=== PATIENT | male | born 2000 | race Caucasian/White ===

== ENCOUNTER → 2019-04-29 | Outpatient (CLI) | payer OTHER ==
--- NOTE | 2019-04-29 17:41 | Diagnostic Imaging Report ---
INDICATION: Playing with puppy, tripped, landed on hand, pain and swelling. TECHNIQUE: Two views of the right hand. CORRELATION STUDY: None. FINDINGS: Slightly comminuted fracture involving the head and neck at the distal fifth metacarpal. Slight impaction present. Alignment also with very slight volar angulation. Remaining osseous structures are otherwise intact. Some soft tissue edema noted along the area of the fracture. IMPRESSION: 1. Slightly comminuted fracture at the distal fifth metacarpal. Fracture involves the head and neck. Associated soft tissue swelling. Findings have been telephoned to [place] at the time of this dictation, 5:29 p.m. Dictated by: Dictated on workstation # [id number]
== END ==
LOC: RAD 17:14
PROVIDERS: ATTEND Nurse Practitioner Family
DX: M79.641 Pain in right hand (principal); W01.0XXA Fall on same level from slipping, tripping and stumbling without subsequent striking against object, initial encounter; Y93.89 Activity, other specified
CPT/HCPCS: 73120

== ENCOUNTER → 2019-05-05 | Outpatient (CLI) | payer OTHER ==
--- NOTE | 2019-05-05 09:29 | Diagnostic Imaging Report ---
INDICATION: Followup fracture. Time of exam 9:05 a.m. COMPARISON: Correlation is made with prior radiographs from 04/29/2019. FINDINGS: Fracture involving the distal fifth metacarpal is again noted. Overall alignment appears stable with some mild volar angulation of the distal fracture fragment. No significant displacement is seen. Fracture lines remain clearly visible. No significant callus formation is seen at this time. Remainder of the metacarpals and phalanges are intact. Carpus unremarkable. IMPRESSION: Distal fifth metacarpal fracture, similar in appearance to the examination from 6 days earlier. Dictated by: Dictated on workstation # [id number]
== END ==
LOC: ORTHO 08:27
PROVIDERS: ATTEND Orthopaedic Surgery
DX: S62.336A Displaced fracture of neck of fifth metacarpal bone, right hand, initial encounter for closed fracture (principal); W01.0XXA Fall on same level from slipping, tripping and stumbling without subsequent striking against object, initial encounter
CPT/HCPCS: 29075; 73130

== ENCOUNTER → 2019-05-26 | Outpatient (CLI) | payer OTHER ==
--- NOTE | 2019-05-26 09:31 | Diagnostic Imaging Report ---
INDICATION: Followup fifth metacarpal fracture. Time of exam: 9:07 AM Correlation is made with prior study from 05/05/2019. Comminuted fracture of the distal fifth metacarpal is again seen. There is some callus formation consistent with some healing. Mild volar angulation of the distal fracture fragment is noted. There is no displacement. Fracture lines remain visible. Phalanges are unremarkable. IMPRESSION: Healing distal fifth metacarpal fracture. Fracture lines do remain partly visible, however. Dictated by: Dictated on workstation # [id number]
== END ==
LOC: ORTHO 08:49
PROVIDERS: ATTEND Orthopaedic Surgery
DX: S62.336D Displaced fracture of neck of fifth metacarpal bone, right hand, subsequent encounter for fracture with routine healing (principal)
CPT/HCPCS: 73130; 99213

== ENCOUNTER → 2019-06-09 | Outpatient (CLI) | payer OTHER ==
--- NOTE | 2019-06-09 09:16 | Diagnostic Imaging Report ---
EXAMINATION: Right hand at 8:48 AM INDICATION: Followup fracture 3 views were obtained. The prior exam of 05/26/19 noted a healing fracture of the head of the fifth metacarpal. On this study, the fracture is again evident and does not seem to have changed significantly. There is still mild dorsal angulation of the fracture fragments at the fracture site. There is callus formation present but the fracture lines are still visible. The overall appearance of the hand is otherwise unchanged. No new abnormality has developed. IMPRESSION: There is a healing fracture of the neck of the fifth metacarpal. When compared to prior study, however, there has been no significant change. The fracture lines are still evident. Dictated by: Dictated on workstation # [id number]
== END ==
LOC: ORTHO 08:39
PROVIDERS: ATTEND Orthopaedic Surgery
DX: S62.336A Displaced fracture of neck of fifth metacarpal bone, right hand, initial encounter for closed fracture (principal); W01.0XXA Fall on same level from slipping, tripping and stumbling without subsequent striking against object, initial encounter
CPT/HCPCS: 73130; 99213

== ENCOUNTER 2019-11-27 09:14 | Emergency (ER) | payer OTHER ==
[~2019-11-27] VITALS: Ht 170 cm; Wt 66.6 kg
[2019-11-27] MEDS ORDERED: LACTATED RINGERS 1,000 ML IV ONE ×2 (09:55→09:56)
--- NOTE | 2019-11-27 09:55 | ED Psychosocial ---
General Chief Complaint: Psych/Social Disorder Stated Complaint: PSYCH EVAL Source: patient, family (mom) Exam Limitations: clinical condition History of Present Illness Date Seen by Provider: Nov 27, 2019 Time Seen by Provider: 09:40 Initial Comments Patient presents to ER by private conveyance with his mother and chief complaint past couple weeks he's been having some paranoid delusions hearing voices that have told him to hurt himself and others according to his mom but he denies that they have told him that. He does hear voices and they talk about a variety of things. He denies suicidal ideation or homicidal ideation at this time. He's been concerned that his dog might be that he might have diabetes and a variety of other unrelated maladies that he cannot support why he has these fears. Sunday, 4 days ago he was picked up with marijuana, Adderall and crystal methamphetamines and was released back into his mother's custody yesterday evening. He does not have any routine prescription medications. She brought him here because she feels he is a danger to himself and possibly others and would not be safe on his own. He has not done anything other than drugs to intentionally harm himself that he endorses. He is not having any pain or nausea. He denies shortness of breath fevers chills cough, diarrhea or constipation. He denies using other prescription drugs, opiates, cocaine. He denies any prior psychiatric history. He says been using methamphetamine since high school. No known previous medical history . He has a history of his tonsils and adenoids surgically removed. Allergies and Home Medications Allergies Coded Allergies: No Known Drug Allergies (Unverified , 11/27/19) Patient Home Medication List Home Medication List Reviewed: Yes Review of Systems Constitutional: No chills, No fever; malaise; No weakness EENTM: No ear discharge, No ear pain Respiratory: No cough, No short of breath Cardiovascular: No chest pain, No edema Gastrointestinal: No abdominal pain, No constipation, No dysphagia, No nausea Genitourinary: No discharge, No dysuria Musculoskeletal: No back pain, No joint pain Skin: No pruritus, No rash Psychiatric/Neurological: See HPI All Other Systems Reviewed Negative Unless Noted: Yes Past Hmbsgns-Usiiba-Vevyxz Hx Patient Social History Alcohol Use: Denies Use Recreational Drug Use: Yes Drug of Choice: Meth, cannabis, Adderall Smoking Status: Never a Smoker Physical Exam Vital Signs - First Documented 11/27/19 09:44 Temp 37.0 Pulse 69 Resp 14 B/P (MAP) 134/82 (99) Pulse Ox 100 Capillary Refill : Height, Weight, BMI Height: '" Weight: lbs. oz. kg; BMI Method: General Appearance: WD/WN, mild distress, other (he is clutching a crucifix and rosary) HEENT: PERRL/EOMI, normal ENT inspection, TMs normal; No pharynx normal (oral mucosa is dry) Neck: non-tender, full range of motion, normal inspection Respiratory: lungs clear, normal breath sounds, no respiratory distress, no accessory muscle use Cardiovascular: normal peripheral pulses, regular rate, rhythm, no edema Peripheral Pulses: 2+ Radial Pulses (R), 2+ Radial Pulses (L) Gastrointestinal: normal bowel sounds, non tender, soft, no organomegaly Neurologic/Psychiatric: alert, oriented x 3 Appearance/Memory: no memory impairment, disheveled, impaired insight Behavior/Eye Contact: cooperative, avoids eye contact, increased rate of speech, other (tangential) Thoughts/Hallucinations: auditory hallucinations, delusions, paranoid, persecution Skin: normal color, warm/dry Progress/Results/Core Measures Results/Orders Lab Results Laboratory Tests Test 11/27/19 10:08 11/27/19 10:55 Range/Units White Blood Count 7.5 4.3-11.0 10^3/uL Red Blood Count 5.02 4.35-5.85 10^6/uL Hemoglobin 15.3 13.3-17.7 G/DL Hematocrit 44 40-54 % Mean Corpuscular Volume 87 80-99 FL Mean Corpuscular Hemoglobin 30 25-34 PG Mean Corpuscular Hemoglobin Concent 35 32-36 G/DL Red Cell Distribution Width 11.5 10.0-14.5 % Platelet Count 254 130-400 10^3/uL Mean Platelet Volume 10.4 7.4-10.4 FL Neutrophils (%) (Auto) 63 42-75 % Lymphocytes (%) (Auto) 30 12-44 % Monocytes (%) (Auto) 7 0-12 % Eosinophils (%) (Auto) 0 0-10 % Basophils (%) (Auto) 0 0-10 % Neutrophils # (Auto) 4.7 1.8-7.8 X 10^3 Lymphocytes # (Auto) 2.3 1.0-4.0 X 10^3 Monocytes # (Auto) 0.5 0.0-1.0 X 10^3 Eosinophils # (Auto) 0.0 0.0-0.3 10^3/uL Basophils # (Auto) 0.0 0.0-0.1 10^3/uL Sodium Level 141 135-145 MMOL/L Potassium Level 3.6 3.6-5.0 MMOL/L Chloride Level 106 98-107 MMOL/L Carbon Dioxide Level 22 21-32 MMOL/L Anion Gap 13 5-14 MMOL/L Blood Urea Nitrogen 11 7-18 MG/DL Creatinine 0.84 0.60-1.30 MG/DL Estimat Glomerular Filtration Rate > 60 BUN/Creatinine Ratio 13 Glucose Level 107 H 70-105 MG/DL Calcium Level 9.5 8.5-10.1 MG/DL Corrected Calcium 9.1 8.5-10.1 MG/DL Total Bilirubin 0.6 0.1-1.0 MG/DL Aspartate Amino Transf (AST/SGOT) 15 5-34 U/L Alanine Aminotransferase (ALT/SGPT) 12 0-55 U/L Alkaline Phosphatase 68 40-136 U/L Total Creatine Kinase 44 30-200 U/L Total Protein 7.2 6.4-8.2 GM/DL Albumin 4.5 3.2-4.5 GM/DL Salicylates Level < 0.3 L 5.0-20.0 MG/DL Acetaminophen Level < 10 L 10-30 UG/ML Serum Alcohol < 10 <10 MG/DL Urine Color YELLOW Urine Clarity CLOUDY H Urine pH 7.0 5-9 Urine Specific [place] 1.020 1.016-1.022 Urine Protein NEGATIVE NEGATIVE Urine Glucose (UA) NEGATIVE NEGATIVE Urine Ketones NEGATIVE NEGATIVE Urine Nitrite NEGATIVE NEGATIVE Urine Bilirubin NEGATIVE NEGATIVE Urine Urobilinogen 0.2 < = 1.0 MG/DL Urine Leukocyte Esterase NEGATIVE NEGATIVE Urine RBC (Auto) NEGATIVE NEGATIVE Urine RBC NONE /HPF Urine WBC 0-2 /HPF Urine Squamous Epithelial Cells 0-2 /HPF Urine Crystals PRESENT H /LPF Urine Amorphous Sediment LARGE KELLEY URATES H /LPF Urine Bacteria NEGATIVE /HPF Urine Casts NONE /LPF Urine Mucus SMALL H /LPF Urine Culture Indicated NO Urine Opiates Screen NEGATIVE NEGATIVE Urine Oxycodone Screen NEGATIVE NEGATIVE Urine Methadone Screen NEGATIVE NEGATIVE Urine Propoxyphene Screen NEGATIVE NEGATIVE Urine Barbiturates Screen NEGATIVE NEGATIVE Ur Tricyclic Antidepressants Screen NEGATIVE NEGATIVE Urine Phencyclidine Screen NEGATIVE NEGATIVE Urine Amphetamines Screen NEGATIVE NEGATIVE Urine Methamphetamines Screen NEGATIVE NEGATIVE Urine Benzodiazepines Screen NEGATIVE NEGATIVE Urine Cocaine Screen NEGATIVE NEGATIVE Urine Cannabinoids Screen POSITIVE H NEGATIVE My Orders Orders - BAYLEE,KAPIL J Ua Culture If Indicated (11/27/19 09:50) Cbc With Automated Diff (11/27/19 09:50) Comprehensive Metabolic Panel (11/27/19 09:50) Alcohol (11/27/19 09:50) Drug Screen Stat (Urine) (11/27/19 09:50) Acetaminophen (11/27/19 09:50) Salicylate (11/27/19 09:50) Ekg Tracing (11/27/19 09:50) Ed Iv/Invasive Line Start (11/27/19 09:50) Monitor-Rhythm Ecg Trace Only (11/27/19 09:50) Ed Iv/Invasive Line Start (11/27/19 09:50) Ct Head Wo (11/27/19 09:50) Chest 1 View Ap/Pa Only (11/27/19 09:50) Ed Iv/Invasive Line Start (11/27/19 09:55) Lactated Ringers (Lr 1000 Ml Iv Solution (11/27/19 09:55) Ed Iv/Invasive Line Start (11/27/19 09:56) Lactated Ringers (Lr 1000 Ml Iv Solution (11/27/19 09:56) Creatine Kinase (11/27/19 10:08) Medications Given in ED Current Medications Medications Dose Ordered Sig/Orquidea Route Start Time Stop Time Status Last Admin Dose Admin Lactated Ringer's 1,000 ml @ 0 mls/hr Q0M ONCE IV 11/27/19 09:55 11/27/19 09:56 DC 11/27/19 10:19 999 MLS/HR Vital Signs/I&O 11/27/19 09:44 Temp 37.0 Pulse 69 Resp 14 B/P (MAP) 134/82 (99) Pulse Ox 100 Progress Progress Note #1: Time: 10:03 Progress Note Patient does exhibit paranoid behaviors and given his history of multiple years of methamphetamine use and would be difficult to diagnose him with schizophrenia versus drug-induced psychosis. His most recent use was probably on Sunday, 4 days ago and his heart rate is low meaning he is probably coming down off of the methamphetamines/amphetamines. We'll start with 2 L of lactated Ringer's get some blood work to include a CPK and urinalysis. We'll get an EKG, chest x-ray and CT of the head to help rule out organic causes of delirium/psychosis. At this point he is tacitly voluntary to go. He is calm, cooperative and reclining on the bed. His agitation were to become more prominent we would consider using antipsychotics. Progress Note #2: Time: 12:11 Progress Note Patient is not having any pain or discomfort. He denies nausea. He is not endorsing any hallucinations or delusions at this time. He says he feels much better. We talked about treatment and how to access it and he would prefer to go inpatient to get in front of a psychiatrist as soon as possible. His mother agrees and says she does not feel he would be safe alone. He has never been inpatient psychiatric treatment before so we will start with [facility]. We have requested the group burner machine take the CPK lab down to [place] so can be read today as soon as possible. However he is not having any pain and has received some IV fluids since feeling better so it is doubtful that he has significant rhabdomyolysis. His mother is willing to transport him. Eliezer is on [facility]. Initial ECG Impression Date: Nov 27, 2019 Initial ECG Impression Time: 10:08 Initial ECG Rate: 61 Initial ECG Rhythm: Normal Sinus Initial ECG Intervals: Normal Initial ECG Impression: Normal Initial ECG Comparisson: No Previous ECG Available Comment Normal sinus rhythm without dysrhythmia. Diagnostic Imaging Diagonstic Imaging: Xray Plain Films/CT/US/NM/MRI: chest (1v) Comments No acute cardiopulmonary processes noted on one view chest x-ray. No acute osseous abnormalities. No soft tissue changes acutely. Visualized gastric/bowel gas pattern unremarkable. [facility] [place] NAME: KACEY HAWK [facility] REC#: [id number] PT STATUS: REG ER : 2000 PHYSICIAN: KAPIL BEACH MD ADMIT DATE: 01/09/20/ER FS Draft Date of Exam:11/27/19 CHEST 1 VIEW AP/PA ONLY INDICATION: Substance abuse. TIME OF EXAM: 9:33 a.m. COMPARISON: No prior studies are available for comparison. FINDINGS: The heart size is normal. The pulmonary vascularity is unremarkable. The lungs are clear. No infiltrate, effusion or pneumothorax is detected. IMPRESSION: No acute cardiopulmonary process is detected. Dictated on workstation # [id number] Dict: 11/27/19 1003 Trans: 11/27/19 1005 [facility] [id number] Interpreted by: ELDA MARIN MD Electronically signed by: Reviewed: Reviewed by Me Diagonstic Imaging: CT (without IV contrast) Plain Films/CT/US/NM/MRI: head Comments Unremarkable CT of the head without IV contrast. No intracranial hemorrhage, mass effect, midline shift or tumor. No calvarial fracture appreciated. NAME: KACEY HAWK [facility] REC#: [id number] PT STATUS: REG ER : 2000 PHYSICIAN: KAPIL BEACH MD ADMIT DATE: 11/27/19/ER FS Draft Date of Exam:11/27/19 CT HEAD WO PROCEDURE: CT head without contrast. TECHNIQUE: Multiple contiguous axial images were obtained through the brain without the use of intravenous contrast. Auto Exposure Controls were utilized during the CT exam to meet ALARA standards for radiation dose reduction. INDICATION: Substance abuse. COMPARISON: No prior studies are available for comparison. FINDINGS: The ventricles and sulci are within normal limits. No sulcal effacement or midline shift is detected. No acute intra-axial or extra-axial hemorrhage is detected. Cisterns are patent. Visualized paranasal sinuses are clear. IMPRESSION: No acute intracranial process is detected. Dictated on workstation # [id number] Dict: 11/27/19 1004 Trans: 11/27/19 1006 [facility] [id number] Interpreted by: ELDA MARIN MD Electronically signed by: Reviewed: Reviewed by Me Departure Impression Primary Impression: Psychosis Qualified Codes: F29 - Unspecified psychosis not due to a substance or known physiological condition Additional Impressions: Methamphetamine abuse Hallucinations History of command hallucinations Disposition: 65 XFER TO PSYCH HOSP/UNIT Condition: Stable Transfer Transfer Reason: Exceeds level of care Time Spoke to Accepting Phy: 15:40 Transfer Progress Notes Discussed the case with Dr. easton, psychiatrist at [place], [place]. He accepts the patient for command hallucinations and medical management. Transfer Facility: [place], [place] Method of Transfer: Private Vehicle Departure-Patient Inst. Referrals: HARESH ROCKWELL MD (PCP/Family) Primary Care Physician KAPIL BEACH Nov 27, 2019 09:55
--- NOTE | 2019-11-27 10:00 | NUR ---
Pt denies being homicidal or suicidal at this time. Mom however states, "thats not what you said last night". Mom nonspecific as the pts exact words however she states when asked, "if the voices told you to hurt someone would you", he said "yes" last night.
--- NOTE | 2019-11-27 10:05 | Diagnostic Imaging Report ---
INDICATION: Substance abuse. TIME OF EXAM: 9:33 a.m. COMPARISON: No prior studies are available for comparison. FINDINGS: The heart size is normal. The pulmonary vascularity is unremarkable. The lungs are clear. No infiltrate, effusion or pneumothorax is detected. IMPRESSION: No acute cardiopulmonary process is detected. Dictated by: Dictated on workstation # [id number]
--- NOTE | 2019-11-27 10:06 | Diagnostic Imaging Report ---
PROCEDURE: CT head without contrast. TECHNIQUE: Multiple contiguous axial images were obtained through the brain without the use of intravenous contrast. Auto Exposure Controls were utilized during the CT exam to meet ALARA standards for radiation dose reduction. INDICATION: Substance abuse. COMPARISON: No prior studies are available for comparison. FINDINGS: The ventricles and sulci are within normal limits. No sulcal effacement or midline shift is detected. No acute intra-axial or extra-axial hemorrhage is detected. Cisterns are patent. Visualized paranasal sinuses are clear. IMPRESSION: No acute intracranial process is detected. Dictated by: Dictated on workstation # [id number]
[2019-11-27 10:35] LABS: BASOPHILS % (AUTO) 0 % (0-10); EOSINOPHILS % (AUTO) 0 % (0-10); HEMATOCRIT 44 % (40-54); HEMOGLOBIN 15.3 G/DL (13.3-17.7); LYMPHOCYTES # (AUTO) 2.3 X 10^3 (1.0-4.0); LYMPHOCYTES % (AUTO) 30 % (12-44); MEAN CORPUSCULAR HEMOGLOBIN 30 PG (25-34); MEAN CORPUSCULAR HGB CONC 35 G/DL (32-36); MEAN CORPUSCULAR VOLUME 87 FL (80-99); MEAN PLATELET VOLUME 10.4 FL (7.4-10.4); MONOCYTES # (AUTO) 0.5 X 10^3 (0.0-1.0); MONOCYTES % (AUTO) 7 % (0-12); NEUTROPHILS # (AUTO) 4.7 X 10^3 (1.8-7.8); NEUTROPHILS % (AUTO) 63 % (42-75); PLATELET COUNT 254 10^3/uL (130-400); RED CELL DISTRIBUTION WIDTH 11.5 % (10.0-14.5); WHITE BLOOD COUNT 7.5 10^3/uL (4.3-11.0)
[2019-11-27 10:37] LABS: ACETAMINOPHEN < 10 UG/ML (10-30); ALANINE AMINOTRANSFERASE 12 U/L (0-55); ALBUMIN 4.5 GM/DL (3.2-4.5); ALKALINE PHOSPHATASE 68 U/L (40-136); BILIRUBIN,TOTAL 0.6 MG/DL (0.1-1.0); BUN/CREATININE RATIO 13; CALCIUM 9.5 MG/DL (8.5-10.1); CARBON DIOXIDE 22 MMOL/L (21-32); CHLORIDE 106 MMOL/L (98-107); CREATININE SERUM 0.84 MG/DL (0.60-1.30); GFR ESTIMATED > 60; GLUCOSE 107 MG/DL (70-105); POTASSIUM 3.6 MMOL/L (3.6-5.0); SALICYLATE < 0.3 MG/DL (5.0-20.0); SODIUM 141 MMOL/L (135-145); TOTAL PROTEIN 7.2 GM/DL (6.4-8.2)
[2019-11-27 11:24] LABS: AMPHETAMINE SCREEN, URINE NEGATIVE (NEGATIVE); BARBITURATE SCREEN URINE NEGATIVE (NEGATIVE); BENZODIAZEPINES SCREEN URINE NEGATIVE (NEGATIVE); CANNABINOID SCREEN, URINE POSITIVE (NEGATIVE); COCAINE SCREEN URINE NEGATIVE (NEGATIVE); METHADONE STAT NEGATIVE (NEGATIVE); METHAMPHETAMINE SCREEN URINE S NEGATIVE (NEGATIVE); OPIATE SCREEN URINE NEGATIVE (NEGATIVE); OXYCODONE STAT NEGATIVE (NEGATIVE); PROPOXYPHENE STAT NEGATIVE (NEGATIVE); TRICYCLIC ANTIDEPRESSANTS SCRE NEGATIVE (NEGATIVE)
[2019-11-27 11:28] LABS: CLARITY,URINE CLOUDY; COLOR,URINE YELLOW
[2019-11-27 11:29] LABS: AMORPHOUS SEDIMENT,UR LARGE AMOR URATES /LPF; BACTERIA,URINE NEGATIVE /HPF; BILIRUBIN,URINE NEGATIVE (NEGATIVE); GLUCOSE, URINE (UA) NEGATIVE (NEGATIVE); KETONES,URINE NEGATIVE (NEGATIVE); LEUKOCYTE ESTERASE ,URINE NEGATIVE (NEGATIVE); NITRITE,URINE NEGATIVE (NEGATIVE); PROTEIN,URINE NEGATIVE (NEGATIVE); SQUAMOUS EPITHELIAL CELL,UR 0-2 /HPF; WBC,URINE 0-2 /HPF
--- NOTE | 2019-11-27 12:08 | NUR ---
Pt continues to be calm and cooperative. Mother still at bedside.
--- NOTE | 2019-11-27 12:08 | NUR ---
Dr. Miller in to speak with pt about lab results and what he wants as far as treatment.
--- NOTE | 2019-11-27 13:56 | NUR ---
This RN spoke with Sofía at [facility] in [place]. She states she has 10 beds available. A packet including face sheet, labs, EKG all faxed to her.
--- NOTE | 2019-11-27 15:24 | NUR ---
This RN just spoke with Sofía at [facility] in [place]. Report given. She states she will have her Dr. lopez and speak with Dr. Miller.
[2019-11-27 16:44] VITALS: BP 138/78
== END 2019-11-27 16:20 ==
LOC: EDUNIT# 09:14 → ER FS 09:15
DX: F29 Unspecified psychosis not due to a substance or known physiological condition (principal); F15.10 Other stimulant abuse, uncomplicated
CPT/HCPCS: 36415; 70450; 71045; 80053; 80306; 80320; 80329; 81000; 82550; 85025; 93005; 93041